=== PATIENT | female | born 1995 | race African-American/Black ===

== ENCOUNTER 2020-10-09 17:11 | Emergency (ER) | payer OTHER ==
[~2020-10-09] VITALS: Ht 165.1 cm; Wt 88.9 kg
[2020-10-09 17:32] VITALS: Ht 165.1 cm; Wt 88.9 kg
[2020-10-09 19:39] VITALS: BP 116/98
== END 2020-10-09 19:39 | disposition home or self-care (01) ==
LOC: ED 17:11
DX: S86.912A Strain of unspecified muscle(s) and tendon(s) at lower leg level, left leg, initial encounter (principal); X50.1XXA Overexertion from prolonged static or awkward postures, initial encounter; Y93.89 Activity, other specified; Y92.89 Other specified places as the place of occurrence of the external cause; Y99.8 Other external cause status
CPT/HCPCS: J1885